=== PATIENT | female | born 1935 | race Caucasian/White ===

== ENCOUNTER 2020-06-29 10:54 | Inpatient (IN) | payer MEDICARE, SELFPAY ==
[2020-06-29] VITALS (19 sets, daily range): BP systolic 109–144; BP diastolic 46–87; PULSE 69–114; RESP 16–30; TEMP 36.3–36.8; O2SAT 83–100; BMI 21.7
--- NOTE | ~2020-06-29 | CT_ITS ---
EXAMINATION: CTA chest PE protocol EXAM DATE: 06/29/2020 13:00 INDICATION: Shortness of breath. COVID-19. Elevated d-dimer. TECHNIQUE: Spiral CTA of the chest (pulmonary arteries) was performed with 100 cc Omnipaque 350 intr avenous contrast injection. Images were acquired during the pulmonary arterial phase. Coronal maxi mum intensity projection 3D-reconstructions were created by the technologist on dedicated workstation . Axial, coronal and sagittal reformatted images were reviewed. The dose-length product (DLP) for t his examination was 191.38 mGy-cm. The exposure was tailored according to patient size (auto mA exp osure control), and iterative reconstruction (ASIR) was used as additional dose reduction technique. Comparison is made to prior examination from 06/30/2015. FINDINGS: Pulmonary arteries are well opacified and without intraluminal filling defects. Interval d evelopment of spiculated nodule straddling the right major fissure medially measuring 1.6 x 1.2 cm, a ppearance most consistent with primary lung cancer. There is severe emphysema and hyperinflation. Mod erate basilar honeycombing, fibrotic change without definite superimposed acute airspace disease. No thoracic aortic dissection. There are no pleural or pericardial effusions. Tracheobronchial tree i s patent. There is no mediastinal, hilar or axillary lymphadenopathy. There is no pneumothorax. Heart normal in size. There is mild coronary arterial calcification, arterial sclerosis. Upper ab domen is unremarkable. There is thoracic spondylosis without osteoblastic or osteolytic lesions wilmer ntified. IMPRESSION: 1. Right lung spiculated nodule most consistent with primary lung cancer. 2. Severe emphysema. 3. Moderate pulmonary fibrosis. 4. No definite acute airspace disease. No evidence of pulmonary embolism. Reviewed, dictated and finalized at location A. DESTRUCTIVE EVALUATION MANAGER
--- NOTE | ~2020-06-29 | XR_ITS ---
EXAMINATION: XR chest 1V portable DATE: 06/29/2020 11:25 INDICATION: Shortness of breath. Cough. TECHNIQUE: A single frontal view of the chest was obtained. COMPARISON: Chest single view 06/28/2015, chest CT 06/30/2015 FINDINGS: The lungs are hyperexpanded with lucencies, consistent with emphysema. There are airspace o pacities in the lower lung zones. No pleural effusion or pneumothorax. The heart size is normal. Ther e is a radiopaque marker in right breast. IMPRESSION: 1. Airspace opacities in the lower lung zones, consistent with atelectasis versus pneumonia. 2. Emphysema. Reviewed, dictated and finalized at location A. SAW OPERATOR IMPRESSION: 1. Airspace opacities in the lower lung zones, consistent with atelectasis vers us pneumonia. 2. Emphysema.
--- NOTE | 2020-06-29 11:01 | ECG_ITS ---
Measurements Intervals [place] Rate: 81 P: 87 MD: 166 QRS: 66 QRSD: 109 T: 62 QT: 369 QTc: 431 Interpretive Statements SINUS RHYTHM ATRIAL PREMATURE COMPLEX INCOMPLETE RIGHT BUNDLE BRANCH BLOCK BASELINE ARTIFACT- V3 BORDERLINE ECG Electronically Signed On 06-29-2020 14:15:15 COMMUNICATIONS EQUIPMENT SUPERVISOR by Dev Wilhelm D.O.
[2020-06-29 11:23] LABS: Basophils Percent Auto 0.2 % (0.2-1.2); Hematocrit 35.2 % (37.0-47.0); Immature Granulocyte Absolute 0.01 K/mm3 (0.00-0.031); Immature Granulocyte Percent A 0.2 % (0-0.5); Lymphocytes Absolute Auto 0.64 K/mm3 (0.9-3.2); Lymphocytes Percent Auto 14.9 % (18.3-44.2); Mean Corpuscular HGB Conc 34.1 g/dl (32-36); Mean Corpuscular Hemoglobin 31.1 pg (26-34); Mean Corpuscular Volume 91.2 fl (80-100); Mean Platelet Volume 9.9 fl (7.4-10.4); Monocytes Absolute Auto 0.3 K/mm3 (0.1-0.6); Monocytes Percent Auto 7.4 % (2.6-8.5); Neutrophils Absolute Auto 3.3 K/mm3 (1.3-6.7); Neutrophils Percent Auto 77.3 % (45.5-73.1); Platelet Count Result 170 k/mm3 (150-375); Red Blood Count 3.86 M/mm3 (4.2-5.4); Red Cell Distribution Width 12.9 % (11.5-14.5); White Blood Count 4.3 K/mm3 (4.5-10.0)
[2020-06-29 11:29] LABS: Anion Gap 8 mmol/L (8-16); Blood Urea Nitrogen 9 mg/dL (7-17); Calcium 8.3 mg/dL (8.4-10.2); Carbon Dioxide 25 mmol/L (22-30); Chloride 98 mmol/L (98-107); Estimated Glomerular Filt Rate > 60; Glucose 108 mg/dL (65-105); Potassium 3.9 mmol/L (3.4-5.0); Sodium 131 mmol/L (137-145)
[2020-06-29] MEDS: DEXAMETHASONE SOD PHOS INJ 4 MG/ML VIAL 10 MG IV PUSH (11:48)
[2020-06-29] MEDS: SODIUM CHLORIDE 0.9% IV 500 ML 999 ML IV CONT (11:55)
[2020-06-29 12:15] LABS: D Dimer 0.74 ug/mL (<0.48)
--- NOTE | 2020-06-29 12:20 | PC.NURSE ---
LIZZY TAVERAS [facility] [phone]
--- NOTE | 2020-06-29 12:48 | ED.GENADULT ---
HPI - General Adult General Chief complaint: Shortness of Breath/Dyspnea <Lizy Mims PA-C - Last Filed: 06/29/20 16:33> Stated complaint: SOB COVID + <Lizy Mims PA-C - Last Filed: 06/29/20 16:33> Time Seen by Provider: 06/29/20 11:02 <Lizy Mims PA-C - Last Filed: 06/29/20 16:33> Source: patient <HAO Lim Last Filed: 06/29/20 16:33> Mode of arrival: EMS <HAO Lim Last Filed: 06/29/20 16:33> Limitations: no limitations <HAO Lim Last Filed: 06/29/20 16:33> History of Present Illness HPI narrative: Patient with history of emphysema presents Covid positive with chief complaints of feeling short of breath and possibly slightly dehydrated on today. Patient reports that she tested positive for COVID-19 on Thursday after her family are tested positive however her symptoms did not begin until Thursday. She reports having occasional cough, body aches and intermittent fevers. Patient states she did not feel short of breath until today. She denies using home oxygen. Patient reports she has noticed a sitting increase in dyspnea with exertion stating that she cannot walk across the room without feeling as if she cannot breathe. She denies any headaches, changes in vision or hearing, chest pain, nausea, vomiting, diarrhea, bleeding from any of her orifices. Patient states she has had some decreased appetite since being ill but she has been trying to make sure that she is drinking the appropriate amount of fluids. <Lizy Mims PA-C - Last Filed: 06/29/20 16:33> Related Data Home medications: Home Medications Medication Instructions Recorded Confirmed fluticasone furoate-vilanterol 1 inh INHALATION Q6H PRN 06/29/20 06/29/20 [Breo Ellipta] <HAO Lim Last Filed: 06/29/20 16:33> Allergies/adverse reactions: Allergies Allergy/AdvReac Type Severity Reaction Status Date / Time No Known Allergies Allergy Verified 06/29/20 11:50 <Lizy Mims PA-C - Last Filed: 06/29/20 16:33> Review of Systems Review of Systems: Narrative: CONSTITUTIONAL: Reports fatigue denies fever, chills, or sweats. EYES: Denies visual changes, redness, or discharge. ENT: Denies rhinorrhea, congestion, sore throat, or otalgia. CARDIOVASCULAR: Denies chest pain, palpitations, or edema. RESPIRATORY: Reports cough or dyspnea. GASTROINTESTINAL: Denies abdominal pain, nausea, vomiting, or diarrhea. GENITOURINARY: Denies dysuria or hematuria. SKIN: Denies rash or itching. MUSCULOSKELETAL: Denies back pain, joint pain, or myalgia. NEUROLOGIC: Denies headache, numbness, dizziness, or weakness. PSYCHIATRIC: Denies anxiety or depression. <Lizy Mims PA-C - Last Filed: 06/29/20 16:33> PMFSH Past Medical History Medical History: Medical History (Updated 06/29/20 @ 16:33 by Lizy Mims PA-C) Emphysema lung <Lizy Mims PA-C - Last Filed: 06/29/20 16:33> Family History Family History: Family History (System 11/16/19 @ 13:47 by Anna Mirza) Sibling Patient's brother is in good health Family history of cardiovascular disease, Onset Age: 61 Family history of malignant neoplasm, Onset Age: 69 Family history of kidney disease, Onset Age: 73 Mother Family history of cardiovascular disease, Onset Age: 91 Cerebrovascular accident Father Acute myocardial infarction, Onset Age: 69 Other Family history of heart disease in male family member before age 55 <Lizy Mims PA-C - Last Filed: 06/29/20 16:33> Social History Social History: Social History (System 11/16/19 @ 13:47 by Anna Mirza) Smoking status: Former smoker Second hand tobacco smoke exposure: No Smoking end date: 08/10/16 Alcohol intake: never Substance use: never Gender identity (if verbalized by the patient): Female Spiritual care concerns: No <Lizy Mims PA-C - Last [place]
--- NOTE | 2020-06-29 14:49 | PC.NURSE ---
Patient unable to collect urine while using restroom. Will try again
--- NOTE | 2020-06-29 16:15 | PC.NURSE ---
This patient, Clara Dia, was admitted to 3 [facility] Surg Room 329-01. Patient/family oriented to hospital policies and general routines including ID bracelet, bed and alarms, visiting hours, pain management, procedures, bathroom and other care routines, personal items, smoking policy, room service/diet, and visiting hours. Information on how to activate the Rapid Response Team has been discussed. Patient/Family are encouraged to report perceived risks to care and to ask questions if they do not understand what they are told or what they should do.
--- NOTE | 2020-06-29 20:40 | PM.IMHP ---
H&P: HPI History of Present Illness Date/Time: 06/29/20 20:40 Chief complaint: COVID with Hypoxia Narrative: Clara Dia is a 84 year old female who has a history of COPD. She has had multiple family members that have come to her house and were COVID positive. The patient stated that she was tested a week ago Thursday. She has been taking Mucinex and some cold medicine but has not been using her inhaler. The patient stated on Thursday she had a fever of 100.4 and has had some cold chills on and off. And possibly dehydrated today. The patient has an occasional cough she has body aches and intermittent fevers. She did feel short of breath until today. She does not use any home oxygen. However today she is requiring 3 L per nasal cannula. The patient had an 83% pulse ox when she got up moved around. Thus she was requiring oxygen. She was given a 1 time IV bolus. Patient is admitted into observation status on the date of service of 06/29/2020 Review of Systems Review of Systems: All systems reviewed & are unremarkable except as noted in HPI and below Constitutional: Constitutional: Reports as per HPI and Reports no additional constitutional complaints Eyes: Eyes: Reports as per HPI and Reports no additional eye complaints ENT: Reports system reviewed and no additional complaints, except as documented and Reports Normal hearing present Cardiovascular: Cardiovascular: Reports no additional cardiovascular complaints Respiratory: Respiratory: Reports no additional respiratory complaints and Reports no additional respiratory complaints Gastrointestinal: Gastrointestinal: Reports as per HPI and Reports no additional gastrointestinal complaints Musculoskeletal: Musculoskeletal: Reports no additional musculoskeletal complaints Integumentary/Breasts: Skin/Breast: Reports system reviewed and no additional complaints, except as docu and Reports as per HPI Neurologic: Reports system reviewed and no additional complaints, except as documented, Reports as per HPI and Reports Normal hearing present Psychiatric: Psychiatric: Reports no additional psychiatric complaints and Reports as per HPI Endocrine: Endocrine: Reports no additional endocrine complaints Hematologic/Lymphatic: Hematologic/Lymphatic: Reports no additional hematologic/lymphatic complaints Allergic/Immunologic: Allergic/Immunologic: Reports no additional allergic/immunologic complaints [facility] Past Medical History Medical History (Updated 06/29/20 @ 20:47 by Meg Patterson NP) Emphysema lung Hip fracture requiring operative repair S/P ORIF (open reduction internal fixation) fracture 3 pens to her right hip 2015 Surgical History Surgical History Hx of cholecystectomy Family History Family History (Updated 06/29/20 @ 20:47 by Meg Patterson NP) Sibling Patient's brother is in good health Family history of cardiovascular disease, Onset Age: 61 Family history of malignant neoplasm, Onset Age: 69 Family history of kidney disease, Onset Age: 73 Mother Family history of cardiovascular disease, Onset Age: 91 Cerebrovascular accident Father Acute myocardial infarction, Onset Age: 69 Son Acute myocardial infarction Other Family history of heart disease in male family member before age 55 Social History Social History (System 11/16/19 @ 13:47 by Anna Mirza) Smoking status: Former smoker Second hand tobacco smoke exposure: No Smoking end date: 08/10/16 Alcohol intake: never Substance use: never Gender identity (if verbalized by the patient): Female Spiritual care concerns: No Meds Home Medications and Allergies Home Medications Medication Instructions Recorded Confirmed Type fluticasone furoate-vilanterol 1 inh INHALATION Q6H PRN 06/29/20 06/29/20 History [Breo Ellipta] Allergies Allergy/AdvReac Type Severity Reaction S
[2020-06-29 21:51] LABS: Alanine Aminotransferase 16 U/L (4-35)
[2020-06-29] MEDS: REMDESIVIR 200 MG/NS 250 ML 200 MG/250 ML BAG 250 MG IVPB (22:48)
[2020-06-30] VITALS (9 sets, daily range): BP systolic 121–145; BP diastolic 51–71; PULSE 62–91; RESP 16–20; TEMP 36.3–36.9; O2SAT 93–100
[2020-06-30 07:10] LABS: Hematocrit 37.6 % (37.0-47.0); Hemoglobin 12.6 g/dL (12.0-15.0); Immature Granulocyte Absolute 0.02 K/mm3 (0.00-0.031); Immature Granulocyte Percent A 0.7 % (0-0.5); Lymphocytes Absolute Auto 0.68 K/mm3 (0.9-3.2); Lymphocytes Percent Auto 23.9 % (18.3-44.2); Mean Corpuscular HGB Conc 33.5 g/dl (32-36); Mean Corpuscular Hemoglobin 30.5 pg (26-34); Mean Platelet Volume 9.9 fl (7.4-10.4); Monocytes Absolute Auto 0.3 K/mm3 (0.1-0.6); Monocytes Percent Auto 9.2 % (2.6-8.5); Neutrophils Absolute Auto 1.9 K/mm3 (1.3-6.7); Neutrophils Percent Auto 66.2 % (45.5-73.1); Platelet Count Result 223 k/mm3 (150-375); Red Blood Count 4.13 M/mm3 (4.2-5.4); Red Cell Distribution Width 12.7 % (11.5-14.5); White Blood Count 2.8 K/mm3 (4.5-10.0)
[2020-06-30 07:22] LABS: Lactic Acid Reflex 1.9 mmol/L (0.7-2.1)
[2020-06-30 07:31] LABS: Alanine Aminotransferase 23 U/L (4-35); Alkaline Phosphatase 74 U/L (38-126); Anion Gap 12 mmol/L (8-16); Aspartate Amino Transferase 47 U/L (14-36); Bilirubin,Total 0.4 mg/dL (0.2-1.3); Blood Urea Nitrogen 11 mg/dL (7-17); CRP 5.9 mg/dL (<1.0); Carbon Dioxide 26 mmol/L (22-30); Chloride 102 mmol/L (98-107); Estimated CRCL calculation 60 ml/min; Estimated Glomerular Filt Rate > 60; Glucose 143 mg/dL (65-105); Lactate Dehydrogenase 787 U/L (313-618); Sodium 140 mmol/L (137-145)
[2020-06-30 08:09] LABS: Thyroid Stimulating Hormone Reflex 0.416 uIU/mL (0.465-4.68)
[2020-06-30 09:03] LABS: Free T4 Free Thyroxine Reflex 1.51 ng/dL (0.78-2.19)
[2020-06-30] MEDS: ALBUTEROL SULFATE (*SP) AEROSOL 1 PUFF 2 PUFF INHALATION ×3 (10:19→20:43)
[2020-06-30 11:05] LABS: Total Triiodothyronine (T3) 0.85 NG/ML (0.97-1.69)
[2020-06-30] MEDS: DEXAMETHASONE SOD PHOS INJ 4 MG/ML VIAL 6 MG IV PUSH (13:04)
--- NOTE | 2020-06-30 13:04 | PM.IMPN ---
Progress Note: A&P Assessment and Plan (1) COVID-19: Code(s): U07.1 - COVID-19 Status: Acute Assessment and Plan: Patient tested positive for COVID 06/22. At that time she was asymptomatic and tested due to exposure to COVID+ family. Patient's symptoms began a couple days later on 06/24 with shortness of breath, worsening. Feels a little improved today. Weaned down to 2L nasal cannula this afternoon. Continue dexamethasone (day 2) and remdesivir (day 2). Continue supportive care with tylenol for fevers, mucinex, albuterol MDI, incentive spirometer. Will add supplementation with zinc, vitamins C and D. DVT ppx with BID Lovenox. Continue supplemental O2 and wean O2 as tolerated to keep O2 saturations >90%. (2) Acute respiratory failure with hypoxia: Code(s): J96.01 - Acute respiratory failure with hypoxia Status: Acute Assessment and Plan: Secondary to COVID. See above. (3) COPD (chronic obstructive pulmonary disease): Qualifiers: COPD type: unspecified COPD Qualified Code(s): J44.9 - Chronic obstructive pulmonary disease, unspecified Code(s): J44.9 - Chronic obstructive pulmonary disease, unspecified Status: Chronic Assessment and Plan: Patient notes she does not use her Breo inhaler daily; will hold for now as it is nonformulary. Continue therapy outlined above. (4) Pulmonary nodule: Code(s): R91.1 - Solitary pulmonary nodule Status: Acute Assessment and Plan: Patient described to previous provider this nodule was first recognized 3 years ago and they are monitoring it. She is aware of this. Will discuss again in greater detail tomorrow. Subjective Date/time seen: 06/30/20 1145 Interval history: Ms. Dia is a pleasant 84yo F admitted for acute respiratory failure secondary to COVID. She feels her shortness of breath is improved and overall she is feeling a little better today. She denies chest pain. Tolerating some oral intake without nausea or vomiting, notes she has lost her taste. Review of Systems Review of Systems: All systems reviewed & are unremarkable except as noted in HPI and below Exam Narrative: Exam Narrative: General: Elderly female resting comfortably sitting up in bed in no acute distress. HEENT: Normocephalic, EOMI, oral mucosa moist. Cardiovascular: Rate and rhythm are regular. Respiratory: Decreased breath sounds JAY. Mild conversational dyspnea, tolerating 3L O2 nasal cannula during my exam. Abdomen: Soft, non-tender, non-distended, bowel sounds present. Extremities: Peripheral pulses intact. No edema. Neuro: No focal neurological deficits. Speech is clear. Objective Data Vital Signs Vital Signs: Last Vital Signs Temp 97.5 F L 06/30/20 12:00 Pulse 75 06/30/20 12:00 Resp 16 06/30/20 12:00 BP 125/51 L 06/30/20 12:00 Pulse Ox 93 06/30/20 13:41 Intake/Output Intake/Output: Intake & Output 06/27/20 06/28/20 06/29/20 06/30/20 23:59 23:59 23:59 23:59 Intake Total 750 690 Balance 750 690 Meds/Results Medications: Active Medications Generic Name Dose Route Start Last Admin Trade Name Freq PRN Reason Stop Dose Admin Albuterol 2 puff 06/30/20 14:00 Albuterol Sulfate (*Sp) Aerosol 1 Puff INHALATION Q6HRT [facility] Budesonide/Formoterol Fumarate 2 puff 06/30/20 08:00 06/30/20 10:19 Budesonide/Form 160-4.5 Mcg (*Sp) INHALATION 2 puff Q12HRT TYRELL Administration Dexamethasone Sodium Phosphate 6 mg 06/30/20 09:00 Dexamethasone Sod Phos Inj 4 Mg/Ml Vial IV PUSH 07/09/20 09:01 DAILY TYRELL Remdesivir 100 mg in 250 mls @ 250 mls/hr 06/30/20 23:00 IVPB 07/03/20 23:01 Q24H [facility] Radiology Results: ITS Impressions Chest X-Ray 06/29/20 11:29 IMPRESSION: 1. Airspace opa
[2020-06-30] MEDS: ZINC SULFATE 220 MG CAPSULE PO (17:26)
[2020-06-30] MEDS: ASCORBIC ACID 500 MG TABLET PO (17:27)
[2020-06-30] MEDS: CHOLECALCIFEROL 1,000 UNITS TABLET 1000 UNITS PO (17:27)
[2020-06-30] MEDS: guaiFENesin 12 HR 600 MG TABCR PO (20:17)
[2020-06-30] MEDS: REMDESIVIR 100 MG/NS 250 ML 100 MG/250 ML BAG 250 MG IVPB (23:27)
[2020-07-01] VITALS (11 sets, daily range): BP systolic 114–136; BP diastolic 55–67; PULSE 69–98; RESP 18–22; TEMP 36.4–36.6; O2SAT 90–95
[2020-07-01] MEDS: ALBUTEROL SULFATE (*SP) AEROSOL 1 PUFF 2 PUFF INHALATION ×4 (02:40→20:27)
[2020-07-01 08:41] LABS: Hematocrit 34.5 % (37.0-47.0); Hemoglobin 11.7 g/dL (12.0-15.0); Immature Granulocyte Absolute 0.03 K/mm3 (0.00-0.031); Immature Granulocyte Percent A 0.5 % (0-0.5); Lymphocytes Absolute Auto 0.55 K/mm3 (0.9-3.2); Lymphocytes Percent Auto 9.6 % (18.3-44.2); Mean Corpuscular HGB Conc 33.9 g/dl (32-36); Mean Corpuscular Hemoglobin 30.8 pg (26-34); Mean Corpuscular Volume 90.8 fl (80-100); Mean Platelet Volume 9.7 fl (7.4-10.4); Monocytes Absolute Auto 0.6 K/mm3 (0.1-0.6); Monocytes Percent Auto 10.1 % (2.6-8.5); Neutrophils Absolute Auto 4.6 K/mm3 (1.3-6.7); Neutrophils Percent Auto 79.8 % (45.5-73.1); Platelet Count Result 257 k/mm3 (150-375); Red Cell Distribution Width 12.9 % (11.5-14.5); White Blood Count 5.7 K/mm3 (4.5-10.0)
[2020-07-01] MEDS: ZINC SULFATE 220 MG CAPSULE PO (09:39)
[2020-07-01] MEDS: CHOLECALCIFEROL 1,000 UNITS TABLET 1000 UNITS PO (09:39)
[2020-07-01] MEDS: guaiFENesin 12 HR 600 MG TABCR PO ×2 (09:39→20:42)
[2020-07-01] MEDS: ASCORBIC ACID 500 MG TABLET PO (09:39)
[2020-07-01] MEDS: DEXAMETHASONE SOD PHOS INJ 4 MG/ML VIAL 6 MG IV PUSH (09:40)
[2020-07-01] MEDS: ENOXAPARIN 40 MG/0.4 ML SYRINGE SUB-Q ×2 (09:40→20:41)
[2020-07-01 11:43] LABS: Alanine Aminotransferase 28 U/L (4-35); Albumin Level 3.6 g/dL (3.5-5.1); Alkaline Phosphatase 59 U/L (38-126); Anion Gap 14 mmol/L (8-16); Aspartate Amino Transferase 52 U/L (14-36); Bilirubin,Total 0.3 mg/dL (0.2-1.3); Blood Urea Nitrogen 19 mg/dL (7-17); Calcium 8.3 mg/dL (8.4-10.2); Carbon Dioxide 23 mmol/L (22-30); Chloride 102 mmol/L (98-107); Estimated CRCL calculation 51 ml/min; Estimated Glomerular Filt Rate > 60; Glucose 143 mg/dL (65-105); Magnesium 1.9 mg/dL (1.6-2.3); Potassium 3.5 mmol/L (3.4-5.0); Sodium 139 mmol/L (137-145)
--- NOTE | 2020-07-01 15:51 | PM.IMPN ---
Progress Note: A&P Assessment and Plan (1) COVID-19: Code(s): U07.1 - COVID-19 Status: Acute Assessment and Plan: Patient tested positive for COVID 06/22. At that time she was asymptomatic and tested due to exposure to COVID+ family. Patient's symptoms began a couple days later on 06/24 with shortness of breath. She feels improved today. Continue dexamethasone (day 3) and remdesivir (day 3). Continue supportive care with tylenol for fevers, mucinex, albuterol MDI, incentive spirometer. Supplementation with zinc, vitamins C and D. DVT ppx with BID Lovenox. Continue supplemental O2 and wean O2 as tolerated to keep O2 saturations >90%. (2) Acute respiratory failure with hypoxia: Code(s): J96.01 - Acute respiratory failure with hypoxia Status: Acute Assessment and Plan: Secondary to COVID. See above. (3) COPD (chronic obstructive pulmonary disease): Qualifiers: COPD type: unspecified COPD Qualified Code(s): J44.9 - Chronic obstructive pulmonary disease, unspecified Code(s): J44.9 - Chronic obstructive pulmonary disease, unspecified Status: Chronic Assessment and Plan: Patient notes she does not use her Breo inhaler daily; will hold for now as it is nonformulary and sub with symbicort. Continue therapy outlined above. (4) Pulmonary nodule: Code(s): R91.1 - Solitary pulmonary nodule Status: Acute Assessment and Plan: CTA chest shows a < 2cm spiculated nodule in right lung (new compared to image 2015). Patient notes this nodule was first recognized 3 years ago. Discussed that this looked concerning for cancer on imaging and would need biopsied in the future to know for sure. She notes she has lived a good life and is not sure she would even wish to have it biopsied for a diagnosis. Will provide pulmonology contact information on discharge instructions. She can follow up with PCP to discuss if she should wish to have this evaluated further after resolution of her COVID. Subjective Date/time seen: 07/01/20 15:00 Interval history: Ms. Dia is a pleasant 84yo F admitted for acute respiratory failure secondary to COVID. She tells me she is feeling quite a bit better today and notes her shortness of breath is improved. She denies chest pain. She is tolerating some oral intake without nausea or vomiting. She has been up ambulating in the room. Review of Systems Review of Systems: All systems reviewed & are unremarkable except as noted in HPI and below Exam Narrative: Exam Narrative: General: Elderly female resting comfortably sitting up in bed in no acute distress. HEENT: Normocephalic, EOMI, oral mucosa moist. Cardiovascular: Rate and rhythm are regular. Respiratory: Decreased breath sounds JAY. Respirations even and nonlabored. tolerating 3L O2 nasal cannula during my exam. Abdomen: Soft, non-tender, non-distended, bowel sounds present. Extremities: Peripheral pulses intact. No edema. Neuro: No focal neurological deficits. Speech is clear. Objective Data Vital Signs Vital Signs: Last Vital Signs Temp 97.8 F 07/01/20 16:00 Pulse 74 07/01/20 16:00 Resp 18 07/01/20 16:00 BP 136/62 07/01/20 16:00 Pulse Ox 93 07/01/20 16:00 Intake/Output Intake/Output: Intake & Output 06/28/20 06/29/20 06/30/20 07/01/20 23:59 23:59 23:59 23:59 Intake Total 750 1490 970 Balance 750 1490 970 Meds/Results Medications: Active Medications Generic Name Dose Route Start Last Admin Trade Name Freq PRN Reason Stop Dose Admin Albuterol 2 puff 06/30/20 14:00 07/01/20 13:43 Albuterol Sulfate (*Sp) Aerosol 1 Puff INHALATION 2 puff Q6HRT TYRLEL Administration Ascorbic Acid 500 mg 06/30/20 09:00 07/01/20 09:39 Ascorbic Acid 500 Mg Tablet PO 500
[2020-07-01] MEDS: REMDESIVIR 100 MG/NS 250 ML 100 MG/250 ML BAG 250 MG IVPB (22:33)
[2020-07-02] VITALS (12 sets, daily range): BP systolic 115–130; BP diastolic 49–63; PULSE 61–85; RESP 16–20; TEMP 36.4–36.9; O2SAT 92–96
[2020-07-02] MEDS: ALBUTEROL SULFATE (*SP) AEROSOL 1 PUFF 2 PUFF INHALATION ×4 (01:36→22:36)
[2020-07-02 06:37] LABS: Alanine Aminotransferase 25 U/L (4-35)
[2020-07-02] MEDS: ASCORBIC ACID 500 MG TABLET PO (09:29)
[2020-07-02] MEDS: ZINC SULFATE 220 MG CAPSULE PO (09:29)
[2020-07-02] MEDS: DEXAMETHASONE SOD PHOS INJ 4 MG/ML VIAL 6 MG IV PUSH (09:30)
[2020-07-02] MEDS: ENOXAPARIN 40 MG/0.4 ML SYRINGE SUB-Q ×2 (09:30→19:53)
[2020-07-02] MEDS: CHOLECALCIFEROL 1,000 UNITS TABLET 1000 UNITS PO (09:30)
[2020-07-02] MEDS: guaiFENesin 12 HR 600 MG TABCR PO ×2 (09:30→19:53)
--- NOTE | 2020-07-02 15:28 | PM.IMPN ---
Progress Note: A&P Assessment and Plan (1) COVID-19: Code(s): U07.1 - COVID-19 Status: Acute Assessment and Plan: Patient tested positive for COVID 06/22. At that time she was asymptomatic and tested due to exposure to COVID+ family. Patient's symptoms began a couple days later on 06/24 with shortness of breath. She feels improved today. Continue dexamethasone (day 4) and remdesivir (day 4). Continue supportive care with tylenol for fevers, mucinex, albuterol MDI, incentive spirometer. Supplementation with zinc, vitamins C and D. DVT ppx with BID Lovenox. Continue supplemental O2 and wean O2 as tolerated to keep O2 saturations >90%. (2) Acute respiratory failure with hypoxia: Code(s): J96.01 - Acute respiratory failure with hypoxia Status: Acute Assessment and Plan: Secondary to COVID. See above. (3) COPD (chronic obstructive pulmonary disease): Qualifiers: COPD type: unspecified COPD Qualified Code(s): J44.9 - Chronic obstructive pulmonary disease, unspecified Code(s): J44.9 - Chronic obstructive pulmonary disease, unspecified Status: Chronic Assessment and Plan: Patient notes she does not use her Breo inhaler daily; will hold for now as it is nonformulary and sub with symbicort. Continue therapy outlined above. (4) Pulmonary nodule: Code(s): R91.1 - Solitary pulmonary nodule Status: Acute Assessment and Plan: CTA chest shows a < 2cm spiculated nodule in right lung (new compared to image 2015). Patient notes this nodule was first recognized 3 years ago. Discussed that this looked concerning for cancer on imaging and would need biopsied in the future to know for sure. She notes she has lived a good life and is not sure she would even wish to have it biopsied for a diagnosis. Can provide pulmonology contact information on discharge instructions. She can follow up with PCP to discuss if she should wish to have this evaluated further after resolution of her COVID. Subjective Date/time seen: 07/02/20 1400 Interval history: Ms. Dia is a pleasant 84yo F admitted for acute respiratory failure secondary to COVID. She is feeling better and her shortness of breath is improved. She denies chest pain. She is tolerating some oral intake without nausea or vomiting. She has been trying to stay active, up and ambulating in the room. Review of Systems Review of Systems: All systems reviewed & are unremarkable except as noted in HPI and below Exam Narrative: Exam Narrative: General: Elderly female resting comfortably sitting up in bed in no acute distress. HEENT: Normocephalic, EOMI, oral mucosa moist. Cardiovascular: Rate and rhythm are regular. Respiratory: Decreased breath sounds JAY. Respirations even and nonlabored. Tolerating 2L O2 nasal cannula during my exam. Abdomen: Soft, non-tender, non-distended, bowel sounds present. Extremities: Peripheral pulses intact. No edema. Neuro: No focal neurological deficits. Speech is clear. Objective Data Vital Signs Vital Signs: Last Vital Signs Temp 97.5 F L 07/02/20 12:00 Pulse 78 07/02/20 12:00 Resp 18 07/02/20 12:00 BP 115/53 L 07/02/20 12:00 Pulse Ox 92 07/02/20 12:00 Intake/Output Intake/Output: Intake & Output 06/29/20 06/30/20 07/01/20 07/02/20 23:59 23:59 23:59 23:59 Intake Total 750 1490 2010 640 Output Total 800 Balance 750 1490 1210 640 Meds/Results Medications: Active Medications Generic Name Dose Route Start Last Admin Trade Name Freq PRN Reason Stop Dose Admin Acetaminophen 650 mg 07/01/20 17:35 Acetaminophen 325 Mg Tablet PO Q4H PRN Pain or Fever Albuterol 2 puff 06/30/20 14:00 11/23/20 14:37 Albuterol Sulfate (*Sp) Aerosol 1 Puff INHALATION 2 pu
[2020-07-02] MEDS: REMDESIVIR 100 MG/NS 250 ML 100 MG/250 ML BAG 250 MG IVPB (21:55)
[2020-07-03] VITALS (10 sets, daily range): BP systolic 119–134; BP diastolic 52–64; PULSE 67–87; RESP 16–20; TEMP 36.4–36.7; O2SAT 87–94
[2020-07-03] MEDS: ALBUTEROL SULFATE (*SP) AEROSOL 1 PUFF 2 PUFF INHALATION ×3 (03:18→15:40)
[2020-07-03 08:59] LABS: Basophils Percent Auto 0.3 % (0.2-1.2); Immature Granulocyte Absolute 0.26 K/mm3 (0.00-0.031); Lymphocytes Absolute Auto 0.86 K/mm3 (0.9-3.2); Lymphocytes Percent Auto 13.4 % (18.3-44.2); Mean Corpuscular HGB Conc 33.3 g/dl (32-36); Mean Corpuscular Hemoglobin 30.1 pg (26-34); Mean Corpuscular Volume 90.2 fl (80-100); Mean Platelet Volume 9.7 fl (7.4-10.4); Monocytes Absolute Auto 0.5 K/mm3 (0.1-0.6); Monocytes Percent Auto 7.8 % (2.6-8.5); Neutrophils Absolute Auto 4.8 K/mm3 (1.3-6.7); Neutrophils Percent Auto 74.5 % (45.5-73.1); Platelet Count Result 275 k/mm3 (150-375); Red Blood Count 3.66 M/mm3 (4.2-5.4); Red Cell Distribution Width 12.9 % (11.5-14.5); White Blood Count 6.4 K/mm3 (4.5-10.0)
[2020-07-03 09:15] LABS: Alanine Aminotransferase 24 U/L (4-35); Albumin Level 3.3 g/dL (3.5-5.1); Alkaline Phosphatase 51 U/L (38-126); Anion Gap 10 mmol/L (8-16); Aspartate Amino Transferase 30 U/L (14-36); Bilirubin,Total 0.4 mg/dL (0.2-1.3); Blood Urea Nitrogen 17 mg/dL (7-17); CRP 1.3 mg/dL (<1.0); Calcium 8.4 mg/dL (8.4-10.2); Carbon Dioxide 25 mmol/L (22-30); Chloride 103 mmol/L (98-107); Estimated CRCL calculation 51 ml/min; Estimated Glomerular Filt Rate > 60; Glucose 148 mg/dL (65-105); Lactate Dehydrogenase 638 U/L (313-618); Magnesium 2.1 mg/dL (1.6-2.3); Potassium 3.2 mmol/L (3.4-5.0); Sodium 138 mmol/L (137-145)
[2020-07-03] MEDS: ENOXAPARIN 40 MG/0.4 ML SYRINGE SUB-Q (09:24)
[2020-07-03] MEDS: CHOLECALCIFEROL 1,000 UNITS TABLET 1000 UNITS PO (09:25)
[2020-07-03] MEDS: ASCORBIC ACID 500 MG TABLET PO (09:25)
[2020-07-03] MEDS: guaiFENesin 12 HR 600 MG TABCR PO (09:25)
[2020-07-03] MEDS: DEXAMETHASONE SOD PHOS INJ 4 MG/ML VIAL 6 MG IV PUSH (09:25)
[2020-07-03] MEDS: ZINC SULFATE 220 MG CAPSULE PO (09:25)
[2020-07-03] MEDS: POTASSIUM CHLORIDE 20 MEQ TABLET 40 MEQ PO (12:25)
--- NOTE | 2020-07-03 15:44 | PM.DS ---
DS: Admitting Diagnosis Admitting Diagnosis Admitting Diagnosis: COVID with Hypoxia DS: Discharge Diagnosis Discharge Diagnosis (1) COVID-19: Code(s): U07.1 - COVID-19 Status: Acute Assessment and Plan: Patient tested positive for COVID on 06/22. At that time she was asymptomatic and tested due to exposure to COVID+ family member. Patient's symptoms began a couple days later on 06/24 with shortness of breath. She received 5 days of Remdesivir. She was started on Dexamethasone and received 5 days of IV and will continue 5 days of PO. Supportive care provided with bronchodilators and expectorants. Her symptoms resolved. She required 2 L supplemental O2 during stay and home O2 eval revealed continued O2 requirements of 2L with rest and with exertion. (2) Acute respiratory failure with hypoxia: Code(s): J96.01 - Acute respiratory failure with hypoxia Status: Acute Assessment and Plan: Multifactorial secondary to COVID and COPD. See above. (3) COPD (chronic obstructive pulmonary disease): Qualifiers: COPD type: unspecified COPD Qualified Code(s): J44.9 - Chronic obstructive pulmonary disease, unspecified Code(s): J44.9 - Chronic obstructive pulmonary disease, unspecified Status: Chronic Assessment and Plan: Patient required supplemental O2 at rest and with exertion as noted above. Patient's family reported that there were concerns that she has needed home O2 for some time, even prior to ralph COVID. Ongoing O2 requirements may be better explained by COPD than COVID pneumonia. Continue daily Breo. Albuterol as needed. She may benefit from seeing a spray dyer at discretion of her PCP. (4) Pulmonary nodule: Code(s): R91.1 - Solitary pulmonary nodule Status: Acute Assessment and Plan: CTA chest showed a < 2cm spiculated nodule in right lung (new compared to image 2015). Patient noted this nodule was first recognized 3 years ago. Discussed that this looked concerning for cancer on imaging and would need biopsied in the future to know for sure. She notes she has lived a good life and is not sure she would even wish to have it biopsied for a diagnosis. We discussed that she can follow up with her PCP to discuss this further and consider all options. She was provided with contact information for pulmonology should she wish to explore this further. DS: Summary Hospital Course Reason for hospitalization: COVID-19 pneumonia Hospital Course: date of admission: 06/29/2020 date of discharge: 07/03/2020 Clara Dia is 82-year-old female with a history of COPD who presented to the emergency department on 06/29/2020 with complaints of shortness of breath after testing positive for COVID-19 1 week earlier and being around other family members who had COVID-19. At presentation, she was mildly tachypneic with additional vital signs stable, CBC and electrolytes stable, CXR showed airspace opacities in the lower lung zones and emphysema, and CTA showed right lung spiculated nodule consistent with primary lung cancer, severe emphysema, moderate pulmonary fibrosis, and no evidence of PE. She was admitted to the hospitalist service for further evaluation and management. She required supplemental oxygen up to 2 L and will continue with 2 L at rest and with exertion at home. Suspect ongoing O2 requirements may be related to severe emphysema. she will benefit from seeing a spray dyer as noted above. Her shortness of breath and GOUDL resolved. She remained afebrile. Given her overall improvement, she was determined to no longer require inpatient care was felt to be stable for discharge. We discussed worrisome signs and symptoms for which to return and she was educated on her medications. We talked at length about monitoring her symptoms closely and returning to the hospital immediately if she had worsening. We discussed methods to prevent and slow spread
--- NOTE | 2020-07-03 16:43 | HOMEO2EVAL ---
Home Oxygen Evaluation RC: Home Oxygen (O2) Evaluation Start: 07/03/20 11:32 Freq: ONCE Status: Active Protocol: RPE Activity Type Activity Date Activity User E-Sign Co-Sign Detail Recorded Client Recorded Date Recorded By Document 07/03/20 14:40 SENIA [email or web address] 07/03/20 16:43 SENIA Document 07/03/20 14:45 SENIA [email or web address] 07/03/20 16:43 SENIA Document 07/03/20 14:47 SENIA [email or web address] 07/03/20 16:43 ESNIA Document 07/03/20 14:50 SENIA [email or web address] 07/03/20 16:43 SENIA Document 07/03/20 14:55 SENIA [email or web address] 07/03/20 16:43 SENIA 07/03/20 07/03/20 07/03/20 14:40 14:45 14:47 Home O2 Evaluation Test Phase Resting Resting Resting Oxygen Delivery Room Air Nasal Cannula Nasal Cannula Oxygen Flow Rate (L/min) 1 2 Pulse Oximetry (90-100 %) 87 L 87 L 93 Home Oxygen Evaluation Comments Treatment Charges O2 Evaluation 07/03/20 07/03/20 14:50 14:55 Home O2 Evaluation Test Phase Exercise Resting Oxygen Delivery Nasal Cannula Nasal Cannula Oxygen Flow Rate (L/min) 2 2 Pulse Oximetry (90-100 %) 90 Home Oxygen Evaluation Comments PT REQUIRES 2L AT REST AND WITH EXERTION Treatment Charges
--- NOTE | 2020-07-03 16:43 | PCRCNOTE ---
HOME O2 EVAL DONE, TANK IN ROOM. 2L REST AND EXERTION. [facility]. [phone] RN AND CHARGE NURSE AWARE.
== END 2020-07-03 16:45 | disposition home or self-care (01) | DRG 177 ==
LOC: ANHED 11:11 → ANH3MEDSUR 16:08
PROVIDERS: Nurse Practitioner; Physician Assistant; Admitting Provider Internal Medicine; Emergency Provider General Practice; PCP Family Medicine; Visit Provider Physician Assistant
DX: U07.1 COVID-19 (principal); J96.01 Acute respiratory failure with hypoxia; J43.9 Emphysema, unspecified; R91.1 Solitary pulmonary nodule; Z79.51 Long term (current) use of inhaled steroids
CPT/HCPCS: 36415; 71045; 71275; 80048; 80053; 82728; 83605; 83615; 83735; 84439; 84443; 84460; 84480; 85025; 85380; 86140; 93005; 94618; 94640; 96365; 96375; 99285; A9270; G0378; J1100; J1650; J7040; Q9967